=== PATIENT | male | born 1955 | race Caucasian/White ===

== ENCOUNTER 2017-08-23 15:12 | Emergency (ER) | payer BC ==
--- NOTE | 2017-08-23 16:14 | UC ---
Knee Pain HPI - HPI Summary HPI Summary: 62 YO MALE WITH LEFT KNEE PAIN X 1 WEEK SWOLLEN AND TIGHT HURTS MEDIALLY HX LIG REPAIR >25 YRS AGO NO FEVER NO TRAUMA ABLE TO BEAR WT HX GOUT - History of Current Complaint Chief Complaint: UCLowerExtremity Stated Complaint: KNEE PAIN Time Seen by Provider: 08/23/17 15:50 Onset/Duration: Gradual Onset, Lasting Weeks - 1 Severity Initially: Mild Severity Currently: Moderate Pain Intensity: 7 Pain Scale Used: 0-10 Numeric Character: Dull, Aching Aggravating Factor(s): Movement, Weight Bearing Alleviating Factor(s): Rest Associated Signs And Symptoms: Positive: Swelling Able to Bear Weight: Yes - Allergies/Home Medications Allergies/Adverse Reactions: Allergies Allergy/AdvReac Type Severity Reaction Status Date / Time No Known Allergies Allergy Verified 08/23/17 15:24 Home Medications: Home Medications Allopurinol [Zyloprim 300 MG TAB] 08/23/17 [History] Ibuprofen [Ibuprofen 200] 400 mg 08/23/17 [History] Lisinopril 08/23/17 [History] Pravastatin (NF) [Pravachol (NF)] 08/23/17 [History] PMH/Surg Hx/FS Hx/Imm Hx Previously Healthy: Yes - GOUT Cardiovascular History: Hypertension - Surgical History Surgical History: None - Social History Alcohol Use: None Substance Use Type: None Smoking Status (MU): Never Smoked Tobacco - Immunization History Most Recent Influenza Vaccination: unknown Review of Systems Constitutional: Negative Skin: Negative Eyes: Negative ENT: Negative Respiratory: Negative Cardiovascular: Negative Gastrointestinal: Negative Genitourinary: Negative Motor: Negative Neurovascular: Negative Musculoskeletal: Arthralgia Neurological: Negative Psychological: Negative Is Patient Immunocompromised?: No All Other Systems Reviewed And Are Negative: Yes Physical Exam Triage Information Reviewed: Yes Appearance: Well-Appearing, No Pain Distress, Well-Nourished Vital Signs: Initial Vital Signs Temp 98.3 F 08/23/17 15:19 Pulse 86 08/23/17 15:19 Resp 14 08/23/17 15:19 Pulse Ox 98 08/23/17 15:19 Vital Signs Reviewed: Yes Eyes: Positive: Conjunctiva Clear ENT: Positive: Hearing grossly normal, Uvula midline. Negative: Nasal congestion, Nasal drainage, Muffled voice, Hoarse voice Neck: Positive: Supple Respiratory: Positive: Lungs clear, Normal breath sounds, No respiratory distress, No accessory muscle use Cardiovascular: Positive: RRR Abdominal Exam: Normal Musculoskeletal: Positive: ROM Limited @ - LEFT KNEE, LARGE EFFUSION NO HOT OR RED Diagnostics - Radiology No standard instances Xray Interpretation: Positive (See Comments) - Small joint effusion in the presence of postsurgical changes and moderate degenerative changes. Radiology Interpretation Completed By: Radiologist Knee Pain Course/Dx - Differential Dx/Diagnosis Provider Diagnoses: LEFT KNEE PAIN/SUSPECT TORN MEDIAL MENICUS Discharge - Discharge Plan Condition: Stable Disposition: HOME Patient Education Materials: Meniscus Tear (ED) Referrals: Jose Steen MD [Primary Care Provider] - Additional Instructions: SEE YOUR ORTHOPEDIST THIS WEEK PLANNED YOU HAVE MODERATE DEGENERATIVE CHANGES AND BASED ON YOUR EXAM YOU MAY HAVE A TORN MEDIAL MENSICUS IBUPROFEN RECHECK FOR NEW OR WORSENING SYMPTOMS MELISSA FEVER OR IF KNEE TURN RED AND HOT
--- NOTE | 2017-08-23 16:26 | RAD ---
INDICATION: Pain and swelling x1 week COMPARISON: None TECHNIQUE: 4 view radiograph of the left knee. FINDINGS: Postsurgical changes include surgical tacks overlying the lateral tibial plateau and head of the fibula. The visualized bones are well-corticated and properly aligned. Degenerative changes include mild calcification overlying the expected location of the bilateral menisci. There is a small joint effusion noted. There is no acute fracture, dislocation or other focal bony abnormality. IMPRESSION: Small joint effusion in the presence of postsurgical changes and moderate degenerative changes. If the patient's symptoms persist, follow-up imaging is recommended.
== END 2017-08-23 16:45 | disposition home or self-care (01) ==
LOC: UCEAST 15:12
DX: M25.562 Pain in left knee (principal); M25.462 Effusion, left knee; M17.12 Unilateral primary osteoarthritis, left knee; M10.9 Gout, unspecified; I10 Essential (primary) hypertension
CPT/HCPCS: 99202; G0463